=== PATIENT | female | born 1985 | race American Indian/Alaskan Native ===

== ENCOUNTER 2016-10-19 10:43 | Emergency (ER) | payer MEDICAID ==
[2016-10-19 11:12] VITALS: BP 118/72
--- NOTE | 2016-10-19 11:29 | Emergency Department Report ---
Stated Complaint: 10 WKS PREG/SOB/DIZZINESS/VOMITING Time Seen by Provider: 10/19/16 11:25 - HPI History of Present Illness: 30 y/o female state she 10week and having dizziness ,vomiting x 2days .pt complain of chills and fever x 2 days .pt state she unable to keep any food down.pt denies any abdominal pain or vaginal bleeding . - ROS Review of Systems: per HPI - Exam Vital Signs: Vital Signs 10/19/16 11:08 Temperature 99.0 F Pulse Rate 90 Respiratory 19 Rate Blood Pressure 118/72 O2 Sat by Pulse 99 Oximetry Physical Exam: GENERAL: The patient is well-developed and well-nourished. Patient is in NAD. HENT: Normocephalic. Atraumatic. Patient has moist mucous membranes. Throat: No erythema, swelling or exudates. Ears:Tympanic membranes pearly coppola ,intact , and free of exudate and erythema . EYES: Extraocular motions are intact, PERRL NECK: Supple. No meningitic signs are noted. There is no adenopathy noted. CHEST/LUNGS: Clear to auscultation bilaterally. No wheezing, rales or rhonchi noted. There is no respiratory distress noted. HEART/CARDIOVASCULAR: Regular rate and rhythm. Normal S1 S2. No murmurs, rubs , clicks, or gallops. ABDOMEN: Abdomen is soft, nontender.. Bowel sounds normoactive. There is no abdominal distention. Negative rebound tenderness. : Deferred. SKIN: There is no rash. There is no edema. There is no diaphoresis.Normal skin turgor NEURO: The patient is A&Ox3. The patient has no focal neurologic deficits. MUSCULOSKELETAL: There is no tenderness or deformity. There is no limitation range of motion. posture erect.Spine aligned,no deformities. PSYCH: Pt has appropriate mood and affect. MSE screening note: Focused history and physical exam performed. Due to findings the following was ordered: ED Disposition for MSE Condition: Stable
[2016-10-19 14:37] LABS: Bacteria,Urine 4+ /HPF (Negative); Bilirubin,Urine NEG (Negative); Blood,Urine NEG (Negative); Ketones,Urine NEG (Negative); Leukocyte Esterase,Urine TR (Negative); Mucus,Urine 3+ /HPF; Nitrite,Urine NEG (Negative); Urobilinogen,Urine < 2.0 mg/dL (<2.0)
--- NOTE | 2016-10-20 19:02 | ED Elopement Review ---
ED Pt Elopement review - Results review Lab results: Laboratory Tests 10/19/16 14:19 Urine Color Yellow Urine Turbidity Cloudy Urine pH 6.0 Ur Specific [place] 1.028 Urine Protein 30 mg/dl Urine Glucose (UA) Neg Urine Ketones Neg Urine Blood Neg Urine Nitrite Neg Urine Bilirubin Neg Urine Urobilinogen < 2.0 Ur Leukocyte Esterase Tr Urine WBC (Auto) 3.0 Urine RBC (Auto) 2.0 U Epithel Cells (Auto) 28.0 H Urine Bacteria (Auto) 4+ Urine Mucus 3+ - Call Back decision Pt Call Back Decision: Pt to F/U with PMD
== END 2016-10-19 14:25 | disposition left against medical advice (07) ==
LOC: ED 10:43
DX: O21.9 Vomiting of pregnancy, unspecified (principal); O26.891 Other specified pregnancy related conditions, first trimester; R42 Dizziness and giddiness; R50.9 Fever, unspecified; Z3A.10 10 weeks gestation of pregnancy; Z53.21 Procedure and treatment not carried out due to patient leaving prior to being seen by health care provider
CPT/HCPCS: 81001